=== PATIENT | female | born 1930 | race Caucasian/White ===

== ENCOUNTER → 2017-06-29 | Outpatient (CLI) | payer OTHER, MEDICARE | LOC: RAD 16:00 | DX: S82.145A Nondisplaced bicondylar fracture of left tibia, initial encounter for closed fracture (principal) | CPT/HCPCS: 73700 ==

== ENCOUNTER → 2017-08-30 | Outpatient (CLI) | payer OTHER, MEDICARE | LOC: RAD 08:55 | DX: I70.203 Unspecified atherosclerosis of native arteries of extremities, bilateral legs (principal); N32.89 Other specified disorders of bladder; Z89.511 Acquired absence of right leg below knee; R93.6 Abnormal findings on diagnostic imaging of limbs; T87.89 Other complications of amputation stump | CPT/HCPCS: 73701 ==